=== PATIENT | female | born 1955 | race Hispanic/Latino ===

== ENCOUNTER 2018-09-12 18:49 | Emergency (ER) | payer SELFPAY ==
[2018-09-12] MEDS ORDERED: Ondansetron PF 4 MG/2 ML Vial ONE (19:21)
[2018-09-12] MEDS ORDERED: Morphine 4 MG/ML Carpuject ONE (19:21)
[2018-09-12 19:42] LABS: Bilirubin Negative (Negative); Blood, Urine Negative (Negative); Clarity Clear (Clear); Glucose, Urine (Dipstick) Negative (Negative); Leukocyte Negative (Negative); Nitrite Negative (Negative); Protein, Urine (Dipstick) 30 mg/dL (Neg-Trace); Specific Gravity, Urine 1.025 (1.005-1.030); Urobilinogen 0.2 mg/dL (0.2-1.0); pH, Urine 5.5 (5.0-9.0)
[2018-09-12 19:44] LABS: Bacteria/HPF 1+ HPF (None Seen); RBC/HPF 0-3 HPF (0-3); Squamous Epithelial 0-3 HPF (0-3); WBC/HPF 0-3 HPF (0-3)
[2018-09-12 19:50] LABS: Band 1 % (5-11); Eosinophils 5 % (0-10); Hemoglobin 14.3 g/dL (12.0-16.0); Lymphocytes 27 % (21-51); MDiff Complete? YES; Mean Corpuscular HGB CONC 32.9 g/dL (32.0-36.0); Mean Corpuscular Hemoglobin 28.4 pg (27.0-31.0); Mean Corpuscular Volume 86.4 fL (78.0-98.0); Mean Platelet Volume 7.7 fL (7.4-10.4); Monocytes 7 % (0-10); Neutrophil 58 % (42-75); PLT Morphology Comment Appears Adequate; Platelet Count 255 thou/uL (130-400); RBC Distribution Width 12.4 % (11.5-14.5); Reactive Lymphocytes 2 % (0-10); Red Blood Cell (RBC) Count 5.04 mill/uL (4.20-5.40)
[2018-09-12 20:01] LABS: ALT (SGPT) 15 U/L (8-55); AST (SGOT) 15 U/L (5-34); Alkaline Phosphatase 86 U/L (40-150); Anion Gap 13 mmol/L (10-20); BUN (Urea Nitrogen) 16 mg/dL (9.8-20.1); Bilirubin, Total 0.4 mg/dL (0.2-1.2); Calc. Creatinine Clearance 0 mL/min (70-130); Calcium 9.1 mg/dL (7.8-10.44); Carbon Dioxide 26 mmol/L (23-31); Chloride 106 mmol/L (98-107); Estimated GFR-MDRD 90; Globulin 4.1 g/dL (2.4-3.5); Glucose 113 mg/dL (80-115); Lipase 18 U/L (8-78); Potassium 3.6 mmol/L (3.5-5.1); Protein, Total 8.1 g/dL (6.0-8.3); Sodium 141 mmol/L (136-145)
[2018-09-12 20:02] LABS: CKMB 1.3 ng/mL (0-6.6); Troponin I Less than 0.010 ng/mL (< 0.028)
--- NOTE | 2018-09-12 21:39 | CT ---
CT OF THE ABDOMEN AND PELVIS WITHOUT IV CONTRAST: 09/12/18 INDICATION: Right sided flank pain. COMPARISON: None. FINDINGS: The lung bases are clear. Unopacified liver, spleen, pancreas and adrenal glands are unremarkable appearing. No hydronephrosis is demonstrated. There is a small 1 to 2 mm calculus involving the mid and lower pole of the left kid espinoza. No definite ureteral calculus is noted. There is a small phlebolith seen involving the lower pel vis outside of the bladder. The bladder is decompressed. The rectum and perirectal soft tissues are u nremarkable. Unopacified large and small bowel appear within normal limits. There is normal appendix in the right lower quadrant. There is scattered degenerative and osteoarthritic change. No definite acute osseous abnormality is e vident. IMPRESSION: 1. Left nephrolithiasis. 2. No ureteral calculus or hydronephrosis demonstrated. 3. Normal appendix. POS: [facility]
--- NOTE | 2018-09-12 22:11 | ULT ---
RIGHT UPPER QUADRANT ULTRASOUND: 09/12/18 INDICATION: Right sided flank pain, nausea, and vomiting. FINDINGS: There is fatty infiltration of the liver. The gallbladder is mildly distended. No sonographic Delgado' s sign is reported. Common bile duct measures 5.3 mm. Pancreas is obscured. Right kidney measures 11. 6 cm in length. No focal renal lesion or hydronephrosis is evident. IMPRESSION: Fatty liver. No additional acute sonographic abnormality evident. POS: [facility]
== END 2018-09-12 21:53 | disposition home or self-care (01) ==
LOC: SCSER 18:49
DX: N20.0 Calculus of kidney (principal); K76.0 Fatty (change of) liver, not elsewhere classified; I10 Essential (primary) hypertension; D72.829 Elevated white blood cell count, unspecified
CPT/HCPCS: 74176; 76705; 80053; 81003; 81015; 82553; 83690; 84484; 85025; 93005; 96361; 96374; 96375; J2270; J2405